=== PATIENT | male | born 1950 | race African-American/Black ===

== ENCOUNTER → 2017-03-10 | Outpatient (CLI) | payer MEDICARE, OTHER ==
[~2017-03-10] MED LIST: DUTA0.5C2 PO; GADOBUTROL 10mMol/10ml INJECTION IV ONE; SALINE FLUSH 10ml SYRINGE ONE; SULF1TAB42 PO
--- NOTE | 2017-03-10 14:10 | DI ---
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 Contrast: 7.5 mL of Gadavist FINDINGS: The ventricles are stable in appearance. Postoperative changes in the left frontal lobe with encephalomalacia. Extensive T2/FLAIR hyperintensity throughout the left frontal and portions of the left parietal white matter. There is also involvement of the corpus callosum and right periventricular frontal white matter. Scattered microvascular ischemic white matter lesions are seen in the frontal and parietal lobes bilaterally. Postcontrast imaging demonstrates increasing thickness of the curvilinear area of enhancement along the anterior horn of the left lateral ventricle. This is best seen on axial postcontrast image #17 measuring 4 mm in thickness compared to 3 mm on the prior study. This is also seen on coronal images 21 and 22. There is expected dural enhancement at the operative site. No other areas of abnormal postcontrast enhancement appreciated. No areas of diffusion restriction to suggest acute infarct. Skull base and paranasal sinuses are stable in appearance. Orbits are unchanged. Impression: Increasing prominence of the enhancement along the anterior horn left lateral ventricle. This raises suspicion for recurrent tumor. .
== END ==
LOC: IMA 12:29
PROVIDERS: ATTEND Internal Medicine
DX: C71.1 Malignant neoplasm of frontal lobe (principal); R90.89 Other abnormal findings on diagnostic imaging of central nervous system
CPT/HCPCS: 70553; A9585